=== PATIENT | female | born 1990 | race Caucasian/White ===

== ENCOUNTER 2018-02-15 20:38 | Emergency (ER) | payer OTHER, MEDICAID ==
[~2018-02-15] VITALS: Ht 160 cm; Wt 66.2 kg
[~2018-02-15 20:38] MED LIST: AMOXICILLIN 50500 MG PO; CELEXA20 MG; GABAPENTIN 100100 MG; MINIPRESS1 MG; TRAZODONE HCL50 MG
[2018-02-15] MEDS ORDERED: ZOLOFT25 MG PO (20:51)
[2018-02-15] MEDS ORDERED: VENTOLIN HFA 1818 GM INH (21:30)
[2018-02-15] MEDS ORDERED: PREDNISONE 20 M20 MG PO (21:30)
[2018-02-15 22:00] VITALS: BP 115/60
== END 2018-02-15 22:00 | disposition home or self-care (01) ==
LOC: M.ERS 20:38
DX: J40 Bronchitis, not specified as acute or chronic (principal); F32.9 Major depressive disorder, single episode, unspecified; M79.7 Fibromyalgia; F43.10 Post-traumatic stress disorder, unspecified; Z88.5 Allergy status to narcotic agent

== ENCOUNTER 2018-03-19 16:06 | Emergency (ER) | payer OTHER, MEDICAID ==
[~2018-03-19] VITALS: Ht 160 cm; Wt 63.5 kg
[~2018-03-19 16:06] MED LIST changes: +PREDNISONE 20 M20 MG PO; +VENTOLIN HFA 1818 GM INH; +ZOLOFT25 MG PO
[2018-03-19 16:51] LABS: ABSOLUTE EOSINOPHILS 0.1 thou/uL (0.0-0.7); ABSOLUTE LYMPHOCYTES 1.4 thou/uL (0.8-5.3); ABSOLUTE MONOCYTES 0.5 thou/uL (0.0-1.2); ABSOLUTE NEUTROPHILS 3.6 thou/uL (1.6-8.1); BASOPHILS 0.5 %; EOSINOPHILS 1.3 %; HEMATOCRIT 32.6 % (37.0-47.0); HEMOGLOBIN 10.2 gm/dL (12.0-15.0); LYMPHOCYTES 24.9 %; MCH 22.4 pg (26.0-34.0); MCHC 31.4 g/dL (28.0-37.0); MCV 71.4 fL (80.0-100.0); MONOCYTES 8.8 %; NUCLEATED RBCS 0 /100WBC; PLATELET COUNT* 330 thou/uL (150-400); POLYS 64.5 %; RBC 4.57 mil/uL (4.20-5.00); RDW-CV 16.6 % (10.5-14.5); WBC 5.6 thou/uL (4.0-11.0)
[2018-03-19 17:00] LABS: CALCIUM 8.8 mg/dL (8.5-10.1); CREATININE 0.6 mg/dL (0.6-1.3); POTASSIUM 3.7 mmol/L (3.5-5.1)
[2018-03-19 17:04] LABS: ALBUMIN 3.2 g/dL (3.4-5.0); TOTAL BILIRUBIN 0.2 mg/dL (<0.1-1.0); TOTAL PROTEIN 7.7 g/dL (6.4-8.2)
[2018-03-19 17:08] LABS: URINE BILIRUBIN NEGATIVE (Negative); URINE BLOOD NEGATIVE (Negative); URINE CLARITY CLEAR; URINE COLOR YELLOW; URINE GLUCOSE-RANDOM NEGATIVE (Negative); URINE KETONES NEGATIVE (Negative); URINE LEUKOCYTES-REFLEX NEGATIVE (Negative); URINE NITRITE-REFLEX NEGATIVE (Negative); URINE PROTEIN NEGATIVE (Negative); URINE UROBILINOGEN 0.2 E.U./dl (0.2-1.0)
[2018-03-19 17:17] LABS: AMP/METHAMP Negative (Negative); BARBITURATES Negative (Negative); BENZODIAZEPINES Negative (Negative); COCAINE Negative (Negative); METHADONE Negative (Negative); OPIATES Negative (Negative); PCP Negative (Negative); THC Negative (Negative)
[2018-03-19 17:35] LABS: HYPOCHROMASIA 2+; OVALOCYTES 1+; POLYCHROMASIA 1+
[2018-03-19 17:36] LABS: PLATELET ESTIMATE ADEQUATE; SCHISTOCYTES 1+
[2018-03-19 17:53] VITALS: BP 100/55
--- NOTE | 2018-03-21 14:43 | EKG ---
[place] [address] ELECTROCARDIOGRAM REPORT Name: EVGENYBRIANNE JOSÉ ANTONIO Room: [facility]#: [id number] Admission: 03/19/18 Attend Phys: Discharge: 03/19/18 Date of : 89 Report #: [id number] THIS REPORT FOR: //name// [facility] ED Test Date: 2018-03-19 Test Time: 16:38:05 Pat Name: BRIANNE PEPPER Department: Room: Gender: F Machine Cutter: MARGARITO : 1990 Requested By: Faith Patel Order Number: [id number] MD: Tamir Harper Measurements Intervals [place] Rate: 75 P: 6 VT: 157 QRS: 15 QRSD: 70 T: 12 QT: 362 QTc: 405 Interpretive Statements Sinus rhythm Probable left atrial enlargement Low voltage, precordial leads No previous ECG available for comparison Electronically Signed On 03-21-2018 14:43:34 CDT by Tamir Harper [email or web address] <ELECTRONICALLY SIGNED> By: Tamir Harper MD, [facility] 03/21/18 1443 1638 1638 Tamir Harper MD, FACC /EPI
== END 2018-03-19 17:55 | disposition home or self-care (01) ==
LOC: M.ERS 16:06
PROVIDERS: Nurse Practitioner
DX: D64.9 Anemia, unspecified (principal); J45.909 Unspecified asthma, uncomplicated; F32.9 Major depressive disorder, single episode, unspecified; M79.7 Fibromyalgia; Z88.5 Allergy status to narcotic agent; Z91.040 Latex allergy status

== ENCOUNTER 2018-07-12 21:37 | Emergency (ER) | payer OTHER, MEDICAID ==
[~2018-07-12] VITALS: Ht 162.6 cm; Wt 69.4 kg
[2018-07-12] MEDS ORDERED: TESSALON PERLE100 MG PO (22:24)
[2018-07-12] MEDS ORDERED: ZPAK PO (22:24)
[2018-07-12 22:35] VITALS: BP 123/70
== END 2018-07-12 22:35 | disposition home or self-care (01) ==
LOC: M.ERS 21:37
DX: J06.9 Acute upper respiratory infection, unspecified (principal); J45.909 Unspecified asthma, uncomplicated; F32.9 Major depressive disorder, single episode, unspecified; M79.7 Fibromyalgia; Z88.5 Allergy status to narcotic agent; Z91.040 Latex allergy status

== ENCOUNTER 2018-08-26 07:55 | Emergency (ER) | payer OTHER, MEDICAID ==
[~2018-08-26] VITALS: Ht 162.6 cm; Wt 68.0 kg
[~2018-08-26 07:55] MED LIST changes: +TESSALON PERLE100 MG PO; -ZOLOFT25 MG PO; +ZOLOFT50 MG PO; +ZPAK PO
[2018-08-26] MEDS ORDERED: PREDNISONE 20 M20 M1 PO (08:11)
[2018-08-26] MEDS ORDERED: ZPAK PO (08:11)
[2018-08-26 08:18] VITALS: BP 122/62
== END 2018-08-26 08:20 | disposition home or self-care (01) ==
LOC: M.ERS 07:55
DX: J06.9 Acute upper respiratory infection, unspecified (principal); J45.909 Unspecified asthma, uncomplicated; F32.9 Major depressive disorder, single episode, unspecified; M79.7 Fibromyalgia; Z91.040 Latex allergy status; Z88.5 Allergy status to narcotic agent

== ENCOUNTER 2018-11-09 13:48 | Emergency (ER) | payer OTHER, MEDICAID ==
[~2018-11-09] VITALS: Ht 160 cm; Wt 81.7 kg
[~2018-11-09 13:48] MED LIST changes: +PREDNISONE 20 M20 M1 PO
[2018-11-09 14:24] LABS: INFLUENZA A ANTIGEN None Detected (None Detect); INFLUENZA B ANTIGEN None Detected (None Detect)
[2018-11-09 14:36] VITALS: BP 101/64
== END 2018-11-09 14:36 | disposition home or self-care (01) ==
LOC: M.ERS 13:48
PROVIDERS: Nurse Practitioner Family
DX: J00 Acute nasopharyngitis [common cold] (principal); J45.909 Unspecified asthma, uncomplicated; F32.9 Major depressive disorder, single episode, unspecified; M79.7 Fibromyalgia; Z86.73 Personal history of transient ischemic attack (TIA), and cerebral infarction without residual deficits; Z91.040 Latex allergy status; Z88.5 Allergy status to narcotic agent

== ENCOUNTER 2019-03-30 23:14 | Emergency (ER) | payer OTHER, MEDICAID ==
[~2019-03-30] VITALS: Ht 162.6 cm; Wt 72.6 kg
[2019-03-30] MEDS ORDERED: IBUPROFEN 800800 M1 PO (23:58)
[2019-03-31 00:11] VITALS: BP 120/69
== END 2019-03-31 00:13 | disposition home or self-care (01) ==
LOC: M.ERS 23:14
DX: S50.12XA Contusion of left forearm, initial encounter (principal); F32.9 Major depressive disorder, single episode, unspecified; M79.7 Fibromyalgia; J45.909 Unspecified asthma, uncomplicated; Z91.040 Latex allergy status; Z88.5 Allergy status to narcotic agent; W22.8XXA Striking against or struck by other objects, initial encounter; Y93.89 Activity, other specified; Y92.89 Other specified places as the place of occurrence of the external cause; Y99.8 Other external cause status

== ENCOUNTER 2019-09-06 17:54 | Emergency (ER) | payer OTHER, MEDICAID ==
[~2019-09-06] VITALS: Ht 162.6 cm; Wt 71.2 kg
[~2019-09-06 17:54] MED LIST changes: +IBUPROFEN 800800 M1 PO
[2019-09-06 19:15] LABS: INFLUENZA A ANTIGEN Negative (Negative); INFLUENZA B ANTIGEN Negative (Negative)
[2019-09-06] MEDS ORDERED: PROAIR HFA8.5 GM INH (20:31)
[2019-09-06] MEDS ORDERED: TESSALON PERLE100 M1 PO (20:31)
[2019-09-06] MEDS ORDERED: MEDROL DOSPAK21 TA1 PO (20:31)
[2019-09-06 20:43] VITALS: BP 125/81
== END 2019-09-06 20:44 | disposition home or self-care (01) ==
LOC: M.ERS 17:54
PROVIDERS: Physician Assistant
DX: J45.909 Unspecified asthma, uncomplicated (principal); J06.9 Acute upper respiratory infection, unspecified; M79.7 Fibromyalgia; Z88.6 Allergy status to analgesic agent; Z91.040 Latex allergy status

== ENCOUNTER 2021-01-29 08:54 | Emergency (ER) | payer OTHER ==
[~2021-01-29] VITALS: Ht 167.6 cm; Wt 72.6 kg
[~2021-01-29 08:54] MED LIST changes: +MEDROL DOSPAK21 TA1 PO; +PROAIR HFA8.5 GM INH; +TESSALON PERLE100 M1 PO
[2021-01-29 10:13] VITALS: BP 121/68
== END 2021-01-29 10:14 | disposition home or self-care (01) ==
LOC: M.ERS 08:54
DX: Z20.822 Contact with and (suspected) exposure to COVID-19 (principal); J45.909 Unspecified asthma, uncomplicated; M79.7 Fibromyalgia; Z91.040 Latex allergy status; Z88.5 Allergy status to narcotic agent; Z86.73 Personal history of transient ischemic attack (TIA), and cerebral infarction without residual deficits

== ENCOUNTER 2021-02-03 17:36 | Emergency (ER) | payer OTHER ==
[~2021-02-03] VITALS: Ht 162.6 cm; Wt 65.8 kg
[2021-02-03] MEDS ORDERED: VENTOLIN HFA 1818 GM INH (18:47)
[2021-02-03] MEDS ORDERED: FLEXERIL PO (18:47)
[2021-02-03] MEDS ORDERED: ZOFRAN ODT4 MG PO (18:47)
[2021-02-03 18:59] VITALS: BP 111/54
== END 2021-02-03 18:59 | disposition home or self-care (01) ==
LOC: M.ERS 17:36
DX: U07.1 COVID-19 (principal); J45.909 Unspecified asthma, uncomplicated; F32.9 Major depressive disorder, single episode, unspecified; M79.7 Fibromyalgia; Z88.5 Allergy status to narcotic agent; Z91.040 Latex allergy status

== ENCOUNTER 2021-05-18 09:46 | Emergency (ER) | payer OTHER ==
[~2021-05-18] VITALS: Ht 162.6 cm; Wt 63.5 kg
[~2021-05-18 09:46] MED LIST changes: +FLEXERIL PO; +ZOFRAN ODT4 MG PO
[2021-05-18] MEDS ORDERED: SUPER THERAVIT1 EACH PO (10:00)
[2021-05-18 10:37] VITALS: BP 110/72
== END 2021-05-18 10:38 | disposition home or self-care (01) ==
LOC: M.ERS 09:46
DX: J02.9 Acute pharyngitis, unspecified (principal); Z20.822 Contact with and (suspected) exposure to COVID-19; J45.909 Unspecified asthma, uncomplicated; Z86.73 Personal history of transient ischemic attack (TIA), and cerebral infarction without residual deficits; Z88.5 Allergy status to narcotic agent; Z91.040 Latex allergy status

== ENCOUNTER 2021-11-03 15:52 | Emergency (ER) | payer OTHER ==
[~2021-11-03] VITALS: Ht 162.6 cm; Wt 63.5 kg
[~2021-11-03 15:52] MED LIST changes: +SUPER THERAVIT1 EACH PO
[2021-11-03] MEDS ORDERED: MECLIZINE HCL25 M1 PO (16:56)
[2021-11-03] MEDS ORDERED: ONDANSETRON HCL4 M2 PO (16:56)
[2021-11-03 17:07] VITALS: BP 107/70
== END 2021-11-03 17:08 | disposition home or self-care (01) ==
LOC: M.ERS 15:52
DX: R42 Dizziness and giddiness (principal); R11.0 Nausea; H92.02 Otalgia, left ear; J45.909 Unspecified asthma, uncomplicated; F32.9 Major depressive disorder, single episode, unspecified; M79.7 Fibromyalgia; Z86.73 Personal history of transient ischemic attack (TIA), and cerebral infarction without residual deficits; Z88.6 Allergy status to analgesic agent; Z91.040 Latex allergy status